=== PATIENT | male | born 1960 | race Caucasian/White ===

== ENCOUNTER 2018-01-11 13:18 | Outpatient (CLI) | payer OTHER ==
--- NOTE | 2018-01-11 15:12 | RAD ---
TWO VIEWS RIGHT KNEE: Date: 01-11-18 History: Disability evaluation. Right knee pain. FINDINGS: No fracture or dislocation is seen involving the right knee. No other osseous abnormality is seen. No joint effusion is appreciated. IMPRESSION: No acute osseous abnormality right knee. POS: [facility]
--- NOTE | 2018-01-11 15:19 | RAD ---
THREE VIEWS THORACIC SPINE: Date: 01-11-18 History: Dorsalgia to thoracic spine. Disability evaluation. FINDINGS: Multilevel osteophytes are seen with prominent bridging osteophytes and calcification of the anterior longitudinal ligament. Vertebral body height and intervertebral disc spaces appear to be within norm al limits and no fracture or subluxation is seen involving the thoracic spine. IMPRESSION: Degenerative changes in the thoracic spine. No fracture or subluxation is appreciated. POS: [facility]
== END 2018-01-11 13:19 | disposition home or self-care (01) ==
LOC: NAV RAD 13:18
PROVIDERS: ATTEND Family Medicine
DX: M47.894 Other spondylosis, thoracic region (principal)
CPT/HCPCS: 72072

== ENCOUNTER 2019-07-29 23:51 | Emergency (ER) | payer SELFPAY ==
[2019-07-30] MEDS ORDERED: Sodium Chloride 0.9% 2,000 ML ONE (00:14)
[2019-07-30 00:20] LABS: #Basophils 0.1 thou/uL (0.0-0.2); #Eosinphils 0.3 thou/uL (0.0-0.7); #Lymphocytes 2.2 thou/uL (1.20-3.40); #Monocytes 0.9 thou/uL (0.11-0.59); #Neutrophils 9.5 thou/uL (1.40-6.50); %Basophils 0.9 % (0.0-1.0); %Lymphocytes 16.7 % (21.0-51.0); %Monocytes 6.7 % (0.0-10.0); %Neutrophils 73.7 % (42.0-75.0); Hemoglobin 13.9 g/dL (14.0-18.0); Mean Corpuscular HGB CONC 32.7 g/dL (32.0-36.0); Mean Corpuscular Hemoglobin 26.8 pg (27.0-31.0); Mean Corpuscular Volume 81.9 fL (78.0-98.0); Mean Platelet Volume 9.5 fL (7.4-10.4); Platelet Count 262 thou/uL (130-400); RBC Distribution Width 12.6 % (11.5-14.5); Red Blood Cell (RBC) Count 5.17 mill/uL (4.70-6.10); White Blood Cell (WBC) Count 12.9 thou/uL (4.8-10.8)
[2019-07-30 00:41] LABS: ALT (SGPT) 26 U/L (8-55); AST (SGOT) 18 U/L (5-34); Alkaline Phosphatase 177 U/L (40-110); Anion Gap 17 mmol/L (10-20); BUN (Urea Nitrogen) 19 mg/dL (8.4-25.7); Bilirubin, Total 0.3 mg/dL (0.2-1.2); Calc. Creatinine Clearance 0 mL/min (70-130); Calcium 9.8 mg/dL (7.8-10.44); Carbon Dioxide 22 mmol/L (22-29); Chloride 104 mmol/L (98-107); Estimated GFR-MDRD 67; Globulin 3.2 g/dL (2.4-3.5); Glucose 341 mg/dL (70-105); Lipase 6 U/L (8-78); Potassium 4.5 mmol/L (3.5-5.1); Protein, Total 7.2 g/dL (6.0-8.3); Sodium 138 mmol/L (136-145)
[2019-07-30 01:38] LABS: Bilirubin Negative (Negative); Blood, Urine Negative (Negative); Clarity Clear (Clear); Glucose, Urine (Dipstick) 500 mg/dL (Negative); Leukocyte Negative (Negative); Nitrite Negative (Negative); Protein, Urine (Dipstick) Negative (Neg-Trace); Urobilinogen 0.2 mg/dL (Less than 2)
--- NOTE | 2019-07-30 08:50 | RAD ---
PORTABLE CHEST: DATE: 07/30/2019. PROVIDED CLINICAL HISTORY: Cough. FINDINGS: Comparison 07/14/2019. Cardiac and mediastinal silhouette is within normal limits. No focal consoli dation, pleural fluid, of pneumothorax apparent. IMPRESSION: No evidence for an acute cardiopulmonary process. POS: [facility]
== END 2019-07-30 02:16 | disposition home or self-care (01) ==
LOC: NAV ERS 23:51
DX: E11.65 Type 2 diabetes mellitus with hyperglycemia (principal); I10 Essential (primary) hypertension; Z86.73 Personal history of transient ischemic attack (TIA), and cerebral infarction without residual deficits; Z79.899 Other long term (current) drug therapy; Z79.82 Long term (current) use of aspirin; Z79.4 Long term (current) use of insulin
CPT/HCPCS: 36416; 71045; 80053; 81003; 82010; 83690; 84484; 85025; 93005; 94760; 96360; 36415-59; J7050